=== PATIENT | male | born 1970 | race Caucasian/White ===

== ENCOUNTER 2018-10-22 07:20 | Emergency (ER) | payer BC ==
[~2018-10-22] VITALS: Ht 190.5 cm; Wt 107.1 kg
[~2018-10-22 07:20] MED LIST: ACYC800T5 PO; PRED20TA PO
[2018-10-22 07:21] VITALS: Ht 190.5 cm; Wt 107.1 kg
[2018-10-22] MEDS ORDERED: IOHEXOL 100 ML ONE (08:31)
[2018-10-22] MEDS ORDERED: SOD CHLORIDE 0.9% 100 ML ONE (08:31)
[2018-10-22 10:13] VITALS: BP 120/94; PULSE 88; RESP 20
== END 2018-10-22 10:16 | disposition home or self-care (01) ==
LOC: E/R 07:20
DX: G51.0 Bell's palsy (principal); Z87.891 Personal history of nicotine dependence; Z86.73 Personal history of transient ischemic attack (TIA), and cerebral infarction without residual deficits
CPT/HCPCS: 70450; 70496; 70498; 71045; 80053; 82962; 85025; 85610; 85730; 93005; 99285; Q9967